=== PATIENT | female | born 1965 | race Caucasian/White ===

== ENCOUNTER 2016-05-17 13:07 | Emergency (ER) | payer MEDICAID, OTHER ==
[~2016-05-17] VITALS: Wt 78.0 kg
[~2016-05-17 13:07] MED LIST: ALPR0.5T PO; CEPH-443 PO; LEVO50TA71 PO
[2016-05-17] MEDS ORDERED: IBUPROFEN 600 MG TAB PO ONE (13:30)
--- NOTE | 2016-05-17 13:54 | RADRPT ---
PROCEDURE: XR Chest. CLINICAL INDICATION: chest pain, cough TECHNIQUE: Single frontal view of the chest was obtained COMPARISON: 04/22/13 FINDINGS: The heart and mediastinum are within normal limits. There is a small left upper lobe granuloma. The lungs are otherwise clear. There is no pleural effusion or pneumothorax. RPTAT: AA IMPRESSION: Small left upper lobe granuloma. .Remington Eden MD, MD Date Time Electronically viewed and signed by .Remington Eden MD, on 05/17/2016 13:54 .S/
[2016-05-17] MEDS ORDERED: AZIT250T94 PO (14:01)
[2016-05-17] MEDS ORDERED: UDROBDM PO (14:01)
[2016-05-17] MEDS ORDERED: IBUP-1542 PO (14:01)
--- NOTE | 2016-05-17 14:07 | ERD ---
ER Documentation Chief Complaint Date/Time DATE: 05/17/16 TIME: 14:06 Chief Complaint COUGH CONGESTION AND EAR PAIN FOR FEW WKS. NO SOB NOTED. HPI This 51-year-old female presents with productive cough and ear pain for last few weeks. She is not been seen for this. She denies fevers, chest pain, vomiting, abdominal pain, diarrhea. ROS All systems reviewed and are negative except as per history of present illness. Medications Home Meds Active Scripts Ibuprofen* (Motrin*) 600 Mg Tab, 600 MG PO Q6, #15 TAB Prov:CATIE VALLECILLO MD 05/17/16 Guaifenesin-Dextromethorphan* (Robitussin* DM) 100MG/10MG/5ML Syrup, 5 ML PO Q4H Y for COUGH for 5 Days, ML 4 oz Prov:CATIE VALLECILLO MD 05/17/16 Azithromycin* (Zithromax*) 250 Mg Tablet, 250 MG PO .ZPACK DIRECTED, #6 TAB TAKE 500 MG (2 TABS) THE FIRST DAY THEN 250 MG (1 TAB) DAYS 2-5 Prov:CATIE VALLECILLO MD 05/17/16 Alprazolam* (Xanax*) 0.5 Mg Tab, 0.5 MG PO Q8H Y for ANXIETY, #12 TAB Prov:JESUS MARIA MD 10/25/14 Cephalexin* (Keflex*) 500 Mg Capsule, 500 MG PO QID for 5 Days, CAP Prov:JESUS MARIA MD 10/25/14 Reported Medications Levothyroxine Sodium* (Levoxyl*) 50 Mcg Tablet, 50 MCG PO AC BREAKFAST, TAB 10/25/14 Allergies Allergies: Coded Allergies: No Known Allergy (Unverified , 10/25/14) PMhx/Soc History of Surgery: No Anesthesia Reaction: No Hx Neurological Disorder: No Hx Respiratory Disorders: No Hx Cardiac Disorders: No Hx Psychiatric Problems: No Hx Miscellaneous Medical Probl: Yes (hypothroidism anxiety depression) Hx Alcohol Use: No Hx Substance Use: No Hx Tobacco Use: No Smoking Status: Never smoker Physical Exam Vitals Vital Signs Date Time Temp Pulse Resp B/P Pulse Ox O2 Delivery O2 Flow Rate FiO2 05/17/16 13:19 98.5 78 21 138/72 98 Physical Exam Const: [] Alert, aze-zyg-gwdzylrhs Head: Atraumatic Eyes: Normal Conjunctiva ENT: Normal External Ears, Nose and Mouth. Postnasal drip. TMs obscured by cerumen. Neck: Full range of motion..~ No meningismus. Resp: Clear to auscultation bilaterally Cardio: Regular rate and rhythm, no murmurs Abd: Soft, non tender, non distended. Normal bowel sounds Skin: No petechiae or rashes Back: No midline or flank tenderness Ext: No cyanosis, or edema Neur: Awake and alert Psych: Normal Mood and Affect Results 24 hrs Current Medications Medications (Trade) Dose Ordered Sig/Laisha Route PRN Reason Start Time Stop Time Status Last Admin Dose Admin Ibuprofen (Motrin) 600 mg ONCE ONCE PO 05/17/16 13:30 05/17/16 13:31 DC 05/17/16 13:36 Procedures/MDM Chest X-ray 1V Interpreted by me: Soft Tissue: No acute abnormalities Bones: No acute abnormalities Mediastinum/Cardiac Silhouette/Lungs: [No acute abnormalities]. Impression- no acute findings. Small granuloma left upper lobe Patient presents with productive cough last 3 weeks. Given the duration she will treated with Zithromax, Robitussin and ibuprofen. The patient was stable with no new complaints during the ER course. Clinically, there is no current evidence to suggest meningitis, sepsis, acute abdomen, pneumonia, acute coronary syndrome, pulmonary embolism, or any other emergent condition appearing to require further evaluation or hospitalization. The patient should certainly return for any new or worsening symptoms per the aftercare instructions. They should otherwise follow-up with her primary care doctor for reevaluation this week. Departure Diagnosis: Primary Impression: URI, acute Condition: Stable Patient Instructions: Acute Bronchitis Additional Instructions: x ray normal. Cheque otro vez con julien doctor primario en el proximo sidhu or regresa para mas o nueva simptomas. CATIE VALLECILLO MD May 17, 2016 14:07
== END 2016-05-17 14:15 | disposition home or self-care (01) ==
LOC: FTE 13:07
DX: J06.9 Acute upper respiratory infection, unspecified (principal); E03.9 Hypothyroidism, unspecified
CPT/HCPCS: 71010; Z7502; Z7610

== ENCOUNTER 2016-06-03 13:43 | Day surgery (SDC) | payer OTHER ==
[~2016-06-03] VITALS: Ht 165.1 cm; Wt 79.1 kg
[~2016-06-03 13:43] MED LIST changes: +AZIT250T94 PO; +IBUP-1542 PO; +UDROBDM PO
[2016-06-03 15:07] VITALS: Ht 165.1 cm; Wt 79.1 kg
[2016-06-03] MEDS ORDERED: MONT5TAB12 PO (15:20)
[2016-06-03 15:31] VITALS: BP 123/67; PULSE 65; RESP 16
[2016-06-03] MEDS ORDERED: MIDAZOLAM 1 MG/ML 2 ML INJ ONE ×2 (16:09→16:10)
[2016-06-03] MEDS ORDERED: FENTAnyl 50 MCG/ML VIAL ONE (16:09)
[2016-06-03 16:21] VITALS: BP 133/71; PULSE 64; RESP 18
--- NOTE | 2016-06-03 19:17 | GILP ---
DATE OF PROCEDURE: NAME OF PROCEDURE: Colonoscopy. SURGEON: Dennis Walls MD PREOPERATIVE DIAGNOSIS: Screening colonoscopy. POSTOPERATIVE DIAGNOSES: 1. Colonoscopy all the way to the cecum. 2. Poor preparation, making the exam somewhat suboptimal. 3. Internal hemorrhoids. INDICATION FOR THE PROCEDURE: Ms. Bianca Sosa is a 51-year-old female patient who was sc heduled for screening colonoscopy. The procedure and possible complications were well explained to the patient. The patient understood and consented to the procedure. DESCRIPTION OF PROCEDURE: Under the influence of fentanyl and Versed, the colonoscope was carefully introduced into the rectum, and under direct vision, it was advanced all the way to the cecum. FINDINGS: The patient had poor prep, making the exam somewhat suboptimal. The patient was noted to have internal hemorrhoids. No colon neoplasm was identified. She tolerated the procedure very well. There was no complication from the procedure. At the end of the procedure, she was awake with stable vital signs, and she was discharged home to care of her [facility]. IMPRESSION: 1. Colonoscopy all the way to the cecum. 2. Poor preparation, making the exam somewhat suboptimal. 3. Internal hemorrhoids. 4. No gross neoplasm was identified. PLAN: Because of the poor prep and suboptimal nature of the examination, would recommend repeat col onoscopy in 1 year. Dictated By: DENNIS LEWIS/GEN Conf#: [id number] DID#: [id number]
== END 2016-06-03 16:38 | disposition home or self-care (01) ==
LOC: GIL 13:43
PROVIDERS: ATTEND Internal Medicine Gastroenterology
DX: Z12.11 Encounter for screening for malignant neoplasm of colon (principal); K64.8 Other hemorrhoids
CPT/HCPCS: 45378; J2250; J3010

== ENCOUNTER 2016-07-26 09:24 | Emergency (ER) | payer OTHER ==
[~2016-07-26] VITALS: Ht 165.1 cm; Wt 80.0 kg
[~2016-07-26 09:24] MED LIST changes: -AZIT250T94 PO; -CEPH-443 PO; +MONT5TAB12 PO; -UDROBDM PO
[2016-07-26 09:41] VITALS: Ht 165.1 cm; Wt 80.0 kg
--- NOTE | 2016-07-26 11:10 | RADRPT ---
PROCEDURE: XR Chest. CLINICAL INDICATION: chest pain, cough TECHNIQUE: Single frontal view of the chest was obtained COMPARISON: 05/17/16 FINDINGS: The heart and mediastinum are within normal limits. The lungs are clear. There is no pleural effusion or pneumothorax. RPTAT: AA IMPRESSION: No acute disease. .Remington Eden MD, MD Date Time Electronically viewed and signed by .Remington Eden MD, on 07/26/2016 11:09 .S/
[2016-07-26] MEDS ORDERED: FLUT9.9S NASAL (11:35)
[2016-07-26] MEDS ORDERED: MED4DP PO (11:35)
[2016-07-26] MEDS ORDERED: FEXO180T61 PO (11:35)
--- NOTE | 2016-07-26 13:48 | ERD ---
ER Documentation Chief Complaint Date/Time DATE: 07/26/16 TIME: 13:45 Chief Complaint SORE THROAT AND COUGH HPI This is a 51-year-old female presents to the ER complaining of a cough over the last 5 months. Cough is intermittent. Cough is dry and patient states she has coughing attacks. Patient also complaining of sore throat and itchy ears. Patient went to her primary care doctor gave her Zyrtec, however this is not working. She denies any chest pain or shortness of breath. Patient denies any dizziness or headaches. Patient states that 5 months ago there was a gas leak at her apartment, and they still have not fixed it however they are working on it. She does not know which gas it is, however is worried that this is related to her symptoms. ROS 12 point review of systems was done, all negative except per HPI. Medications Home Meds Active Scripts Methylprednisolone* (Medrol* DOSE PACK) 4 Mg/Dose-Pack Tab.ds.pk, 4 MG PO . DIRECTED for 6 Days, PACKET Prov:EZIO DIAZ 07/26/16 Fexofenadine Hcl* (Kat*) 180 Mg Tablet, 180 MG PO DAILY, #30 TAB Prov:EZIO DIAZ 07/26/16 Fluticasone Propionate (Flonase Allergy Relief) 9.9 Ml Kelley.susp, 1 SPRAY NASAL BID, #1 BOTTLE TO EACH NOSTRIL Prov:EZIO DIAZ 07/26/16 Ibuprofen* (Motrin*) 600 Mg Tab, 600 MG PO Q6, #15 TAB Prov:CATIE VALLECILLO MD 05/17/16 Alprazolam* (Xanax*) 0.5 Mg Tab, 0.5 MG PO Q8H Y for ANXIETY, #12 TAB Prov:JESUS MARIA MD 10/25/14 Reported Medications Montelukast Sodium* (Singulair*) 5 Mg Tab.chew, 5 MG PO DAILY, #30 TAB 06/03/16 Levothyroxine Sodium* (Levoxyl*) 50 Mcg Tablet, 50 MCG PO AC BREAKFAST, TAB 10/25/14 Allergies Allergies: Coded Allergies: No Known Allergy (Unverified , 10/25/14) PMhx/Soc History of Surgery: No Anesthesia Reaction: No Hx Neurological Disorder: No Hx Respiratory Disorders: No Hx Cardiac Disorders: No Hx Psychiatric Problems: No Hx Miscellaneous Medical Probl: No Hx Alcohol Use: No Hx Substance Use: No Hx Tobacco Use: No Smoking Status: Never smoker Physical Exam Vitals Vital Signs Date Time Temp Pulse Resp B/P Pulse Ox O2 Delivery O2 Flow Rate FiO2 07/26/16 09:41 98.6 75 19 148/68 97 Physical Exam GENERAL: The patient is well-developed, well-nourished, in no acute distress. NECK: Cervical spine is non tender with no step off. Supple, no nuchal rigidity HEENT: Atraumatic. Pupils equal, round and reactive to light. Extraocular muscles are grossly intact. Conjunctivae pink, no discharge. Bilateral tympanic membranes are clear with no evidence of erythema, effusion or dulling of the light reflex. Tonsilar erythema with no exudates or uvular deviation. Clear rhinorrhea. RESPIRATORY: Clear to auscultation bilaterally. There are no rales, wheezes or rhonchi. HEART: Regular rate and rhythm. No murmurs, clicks, rubs or gallops. EXTREMITIES: No clubbing or cyanosis. Full range of motion. Grossly neurovascularly intact. NEUROLOGIC: Alert and oriented. Cranial nerves II through XII are intact. SKIN: There is no rash. The skin is warm and dry. Procedures/MDM I spoke to Angel at [employer], at this time patient's symptoms are probably not related to gas leak. She is not on any respiratory distress and is not hypoxic. Patient does not have any somnolence or any other symptoms that would be concerning for gas leak exposure. Differential diagnosis includes but is not limited to; Viral URI, allergic rhinitis, bronchitis, pertussis,pneumonia. This is likely allergic in etiology. Clinical suspicion for pneumonia is low as patient appears well, is not hypoxic or in any respiratory distress. Additionally, patients physical examination is benign. Plan was discussed with patient they understand and agree. Patient needs to follow up with PCP in 1-2 days or return to ER sooner if symptoms worsen. Departure Diagnosis: Primary Impression: Cough Condition: Stable Patient Instructions: Cough, Chronic, Uncertain Cause, (Adult) Additional Instructions: Llame al doctor MAANA y omega mary SUDEEP PARA DENTRO DE 1-2 LYNCH.Dgale a la secretaria que nosotros le instruimos hacer esta sudeep.Avise o llame si julien condicin se empeora antes de la sudeep. Regresa aqui si peor o no mejor. EZIO DIAZ Jul 26, 2016 13:48
== END 2016-07-26 11:43 | disposition home or self-care (01) ==
LOC: FTE 09:24
DX: R05 Cough (principal)
CPT/HCPCS: 71010; Z7502

== ENCOUNTER 2016-09-28 10:50 | Emergency (ER) | payer OTHER ==
[~2016-09-28] VITALS: Ht 162.6 cm; Wt 79.0 kg
[~2016-09-28 10:50] MED LIST changes: +FEXO180T61 PO; +FLUT9.9S NASAL; +MED4DP PO
[2016-09-28 10:52] VITALS: Ht 162.6 cm; Wt 79.0 kg
[2016-09-28 11:16] LABS: URINE BLOOD (Dip) POC 3+ (NEGATIVE)
[2016-09-28] MEDS ORDERED: CIPR500T4 PO (11:33)
--- NOTE | 2016-09-28 11:45 | ERD ---
ER Documentation Chief Complaint Date/Time DATE: 09/28/16 TIME: 11:39 Chief Complaint frequency and pain with urination x 3 days HPI 51-year-old female complaining of dysuria 3 days. Patient's last UTI was 11 years ago. Patient is taking Katja-[place] with no alleviation of symptoms. Denies hematuria. Denies back pain. Denies vomiting. Denies fever. Complains of suprapubic pain. Denies history of STDs or new sexual partners. ROS All systems reviewed and are negative except as per history of present illness. Medications Home Meds Active Scripts Ciprofloxacin Hcl* (Ciprofloxacin Hcl*) 500 Mg Tablet, 500 MG PO BID for 7 Days , TAB Prov:MELONY DE LA CRUZ PA-C 09/28/16 Methylprednisolone* (Medrol* DOSE PACK) 4 Mg/Dose-Pack Tab.ds.pk, 4 MG PO . DIRECTED for 6 Days, PACKET Prov:EZIO DIAZ 07/26/16 Fexofenadine Hcl* (Kat*) 180 Mg Tablet, 180 MG PO DAILY, #30 TAB Prov:EZIO DIAZ 07/26/16 Fluticasone Propionate (Flonase Allergy Relief) 9.9 Ml Geraldine.susp, 1 SPRAY NASAL BID, #1 BOTTLE TO EACH NOSTRIL Prov:EZIO DIAZ 07/26/16 Ibuprofen* (Motrin*) 600 Mg Tab, 600 MG PO Q6, #15 TAB Prov:CATIE VALLECILLO MD 05/17/16 Alprazolam* (Xanax*) 0.5 Mg Tab, 0.5 MG PO Q8H Y for ANXIETY, #12 TAB Prov:JESUS MARIA MD 10/25/14 Reported Medications Montelukast Sodium* (Singulair*) 5 Mg Tab.chew, 5 MG PO DAILY, #30 TAB 06/03/16 Levothyroxine Sodium* (Levoxyl*) 50 Mcg Tablet, 50 MCG PO AC BREAKFAST, TAB 10/25/14 Allergies Allergies: Coded Allergies: No Known Allergy (Unverified , 09/28/16) PMhx/Soc Medical history: Hypothyroidism Medications: Levothyroxine Surgical history: Denies Smoking: Denies NKDA Medical and Surgical Hx: pt denies Medical Hx, pt denies Surgical Hx History of Surgery: No Anesthesia Reaction: No Hx Neurological Disorder: No Hx Respiratory Disorders: No Hx Cardiac Disorders: No Hx Psychiatric Problems: No Hx Miscellaneous Medical Probl: No Hx Alcohol Use: No Hx Substance Use: No Hx Tobacco Use: No Smoking Status: Never smoker Physical Exam Vitals Vital Signs Date Time Temp Pulse Resp B/P Pulse Ox O2 Delivery O2 Flow Rate FiO2 09/28/16 10:52 96.1 84 18 116/63 97 Physical Exam Resp: Clear to auscultation bilaterally Cardio: Regular rate and rhythm, no murmurs Abd: Soft, non tender, non distended. Normal bowel sounds. Mild suprapubic tenderness on palpation. Skin: No petechiae or rashes Back: No midline or flank tenderness Results 24 hrs Laboratory Tests Test 09/28/16 11:22 Bedside Urine pH (LAB) 6.0 Bedside Urine Protein (LAB) 1+ Bedside Urine Glucose (UA) Negative Bedside Urine Ketones (LAB) Negative Bedside Urine Blood 3+ Bedside Urine Nitrite (LAB) Negative Bedside Urine Leukocyte Esterase (L 2+ Procedures/MDM ER COURSE: Urine dip checked in the ER. Positive for 2+ leukocytes. MDM: 51-year-old female complaining of dysuria. I have low suspicion for pyelonephritis. Patient's vital signs are stable, patient is nontoxic-appearing , and patient does not have flank pain on palpation. A low suspicion for pelvic emergency as patient does not have severe pain with lateral palpations of the pelvis. I will suspicion for acute abdomen as patient's exam is not concerning. Patient's urine shows signs of infection and I will treat with antibiotics. Patient does not have a history of complicated UTIs I did not feel there is indication for culture at this time. Patient is discharged with antibiotics and all questions answered at the time of discharge. Patient will return to the emergency room if symptoms change or worsen. Departure Diagnosis: Primary Impression: UTI (urinary tract infection) Condition: Stable Patient Instructions: Understanding Urinary Tract Infections (UTIs) Additional Instructions: FOLLOW UP WITH YOUR PRIMARY CARE PHYSICIAN TOMORROW.Return to this facility if you are not improving as expected. MELONY DE LA CRUZ PA-C Sep 28, 2016 11:45
== END 2016-09-28 11:39 | disposition home or self-care (01) ==
LOC: FTE 10:50
DX: N39.0 Urinary tract infection, site not specified (principal); E03.9 Hypothyroidism, unspecified
CPT/HCPCS: 81003; 99283

== ENCOUNTER 2017-06-29 12:18 | Emergency (ER) | END 2017-06-29 13:48 | disposition home or self-care (01) ==

== ENCOUNTER 2017-07-03 19:47 | Emergency (ER) | END 2017-07-03 23:40 | disposition home or self-care (01) ==